=== PATIENT | male | born 1955 | race Caucasian/White ===

== ENCOUNTER 2025-05-21 10:09 | Outpatient (CLI) | payer OTHER ==
[2025-05-21 12:19] LABS: #Basophils Less than 0.03 10x3/uL (0.0-0.2); #Eosinophils Less than 0.03 10x3/uL (0.0-0.7); #Monocytes 0.70 10x3/uL (0.11-0.59); #Neutrophils 3.81 10x3/uL (1.40-6.50); %Basophils 0.1 % (0.0-1.0); %Eosinophils 0.0 % (0.0-10.0); %Lymphocytes 38.5 % (21.0-51.0); %Monocytes 9.5 % (0.0-10.0); %Neutrophils 51.6 % (42.0-75.0); Hematocrit 44.4 % (42.0-52.0); Hemoglobin 15.0 g/dL (14.0-18.0); Mean Corpuscular Hemoglobin 29.9 pg (27.0-31.0); Mean Corpuscular Volume 88.6 fL (78.0-98.0); Platelet Count 244 10x3/uL (130-400); Red Blood Cell (RBC) Count 5.01 mill/uL (4.70-6.10); White Blood Cell (WBC) Count 7.38 10x3/uL (4.8-10.8)
[2025-05-21 12:35] LABS: Anion Gap 16 mmol/L (10-20); BUN (Urea Nitrogen) 18 mg/dL (8.4-25.7); Calc. Creatinine Clearance 0 mL/min (70-130); Calcium 9.7 mg/dL (7.8-10.44); Carbon Dioxide 21 mmol/L (23-31); Chloride 105 mmol/L (98-107); Glucose 89 mg/dL (83-110); Potassium 4.0 mmol/L (3.5-5.1); Sodium 138 mmol/L (136-145)
== END 2025-05-21 10:10 | disposition home or self-care (01) ==
LOC: LABBT 10:09
PROVIDERS: ATTEND Orthopaedic Surgery Hand Surgery
DX: Z01.818 Encounter for other preprocedural examination (principal); M19.131 Post-traumatic osteoarthritis, right wrist; T14.90XS Injury, unspecified, sequela; M10.031 Idiopathic gout, right wrist
CPT/HCPCS: 80048; 85025; 93005; 93010

== ENCOUNTER 2025-05-28 05:42 | Day surgery (SDC) | payer OTHER ==
[2025-05-21 10:30] VITALS: BMI 31.1
[2025-05-28] MEDS ORDERED: Bacitracin Zinc Ointment 30 gm TUBE ONE (06:25)
[2025-05-28] MEDS ORDERED: CEFAZOLIN 2 GM VIAL ONE (06:31)
[2025-05-28] MEDS ORDERED: PROPOFOL 200 MG/20 ML VIAL ONE (07:33)
[2025-05-28] MEDS ORDERED: Ondansetron PF 4 MG/2 ML Vial ONE (07:55)
[2025-05-28] MEDS ORDERED: fentaNYL PF 100 MCG/2 ML SYRINGE ONE (08:08)
[2025-05-28] MEDS ORDERED: Lidocaine 1% (PF) 30 ML VIAL ONE (09:33)
[2025-05-28] MEDS ORDERED: Ropivacaine 0.5% HCl/PF (150 MG/30 ML VIAL) ONE (09:33)
[2025-05-28] MEDS ORDERED: Ropivacaine 0.2% HCl/PF 20 ML ONE (09:33)
[2025-05-28] MEDS ORDERED: Ketorolac Tromethamine 30 MG (1 mL) VIAL ONE (11:29)
[2025-05-28] MEDS ORDERED: HYDROcodone/Acetaminophen 5/325 mg Tablet ONE (13:27)
== END 2025-05-28 13:35 | disposition home or self-care (01) ==
LOC: SDC 05:42
PROVIDERS: ATTEND Orthopaedic Surgery Hand Surgery
PROC: 0RG Upper Joints, Fusion (ICD-10-PCS; principal; 2025-05-28)
PROC: 3E0T3BZ Introduction of Anesthetic Agent into Peripheral Nerves and Plexi, Percutaneous Approach (ICD-10-PCS; principal; 2025-05-28)
PROC: 0PTM0ZZ Resection of Right Carpal, Open Approach (ICD-10-PCS; principal; 2025-05-28)
DX: M1A.03 Idiopathic chronic gout, wrist (principal); M19.131 Post-traumatic osteoarthritis, right wrist; F17.200 Nicotine dependence, unspecified, uncomplicated; E78.00 Pure hypercholesterolemia, unspecified; Z79.82 Long term (current) use of aspirin; Z79.899 Other long term (current) drug therapy
CPT/HCPCS: 88305; A6258; C1713; C1889; C1894; J0665; J1100; J1885; J2003; J2250; J2405; J2704; J2795; J3010

== ENCOUNTER 2025-05-29 09:28 | Inpatient (IN) | payer OTHER ==
[2025-05-29] MEDS ORDERED: Ketorolac Tromethamine 30 MG (1 mL) VIAL ONE (10:35)
[2025-05-29] MEDS ORDERED: Acetaminophen 500 MG TAB ONE (11:44)
[2025-05-29] MEDS ORDERED: Ondansetron PF 4 MG/2 ML Vial ONE (11:45)
[2025-05-29] MEDS ORDERED: Ondansetron PF 4 MG/2 ML Vial SLOW IVP PRN (12:53)
[2025-05-29] MEDS ORDERED: Meperidine HCl/PF 25 MG (1 mL) VIAL IM PRN (12:58)
[2025-05-29] MEDS ORDERED: Communication Order-Pharmacy FS SCH (13:00)
[2025-05-29 13:18] LABS: #Basophils Less than 0.03 10x3/uL (0.0-0.2); #Eosinophils Less than 0.03 10x3/uL (0.0-0.7); #Monocytes 0.96 10x3/uL (0.11-0.59); #Neutrophils 4.57 10x3/uL (1.40-6.50); %Basophils 0.1 % (0.0-1.0); %Eosinophils 0.0 % (0.0-10.0); %Lymphocytes 38.1 % (21.0-51.0); %Monocytes 10.6 % (0.0-10.0); %Neutrophils 50.8 % (42.0-75.0); Hematocrit 39.7 % (42.0-52.0); Hemoglobin 12.9 g/dL (14.0-18.0); Mean Corpuscular Hemoglobin 29.7 pg (27.0-31.0); Mean Corpuscular Volume 91.3 fL (78.0-98.0); Platelet Count 227 10x3/uL (130-400); Red Blood Cell (RBC) Count 4.35 mill/uL (4.70-6.10); White Blood Cell (WBC) Count 9.02 10x3/uL (4.8-10.8)
[2025-05-29 13:33] LABS: ALT (SGPT) 12 U/L (Less than 45); AST (SGOT) 24 U/L (11-34); Albumin 3.9 g/dL (3.1-4.5); Alkaline Phosphatase 67 U/L (40-110); Anion Gap 14 mmol/L (10-20); BUN (Urea Nitrogen) 17 mg/dL (8.4-25.7); Bilirubin, Total 0.5 mg/dL (0.3-1.2); Calc. Creatinine Clearance 0 mL/min (70-130); Calcium 8.9 mg/dL (7.8-10.44); Carbon Dioxide 22 mmol/L (23-31); Chloride 105 mmol/L (98-107); Globulin 2.9 g/dL (2.4-3.5); Glucose 111 mg/dL (83-110); Potassium 3.7 mmol/L (3.5-5.1); Sodium 137 mmol/L (136-145)
[2025-05-29] MEDS: Ketorolac Tromethamine 30 MG (1 mL) VIAL IVP PRN (16:40)
[2025-05-29 17:58] VITALS: BMI 31.1
[2025-05-29] MEDS: TETANUS, DIPHTHERIA TOX,ADULT (TDVAX) 0.5 ML VIAL IM ONE (19:18)
[2025-05-29] MEDS: HYDROcodone/Acetaminophen 5/325 mg Tablet PO PRN (19:59)
[2025-05-29] MEDS: Aspirin 81 mg Enteric Coated Tablet PO SCH (20:01)
[2025-05-29] MEDS: Vancomycin 1 GM in Premix 1 BAG IVPB SCH (20:01)
[2025-05-31 11:43] VITALS: BP 110/71; TEMP 98
== END 2025-05-31 16:41 | disposition home or self-care (01) | DRG 948 ==
LOC: ERS 09:28 → SURG A 11:58
PROVIDERS: ADMIT Orthopaedic Surgery Hand Surgery; ATTEND Orthopaedic Surgery Hand Surgery
DX: G89.18 Other acute postprocedural pain (principal); Z79.82 Long term (current) use of aspirin
CPT/HCPCS: 36415; 80053; 85025; 88305; 96372; 96374; 96375; A6258; C1713; C1889; C1894; J0665; J1100; J1885; J2003; J2250; J2270; J2405; J2704; J2795; J3010; J3373